=== PATIENT | male | born 1995 | race Caucasian/White ===

== ENCOUNTER 2019-11-03 12:47 | Emergency (ER) | payer OTHER ==
--- NOTE | 2019-11-03 13:31 | ERPHSYRPT ---
- History of Present Illness Time Seen by Provider: 11/03/19 12:57 Historian: patient, family Exam Limitations: no limitations, other (mild autism) Patient Subjective Stated Complaint: pt reports for approx 6 months he experiences episodes of vomiting after he eats. pt states he is under the care of a doctor for this issue and had recent outpatient labs, xray studies and is scheduled this week for a scope. mother in room reports that so far all his tests have so far been reported as negative. this morning pt states he woke with abdominal pain and began vomiting. pt reports blood in his vomit. pt denies any pain at time of triage. Triage Nursing Assessment: pt is aox3, pupils perrl, afebrile, resps easy and non labored, radial pulses strong and equal, cap refill < 3 seconds, pt abd soft non tender, bowel sounds present normoactive x 4. pt skin pale warm dry. Physician History: Recurring nausea and vomiting, has EGD in 2 days. Had a hard vomit today and a small amount of blood came up, only once, has a little burning sensation in his abdomen. He was on prilosec but stopped it because it was not helping. Timing/Duration: today Activities at Onset: other (recurrent pain in upper abdomen) Quality: burning Abdominal Pain Onset Location: epigastric Pain Radiation: no radiation Severity of Pain-Max: mild Severity of Pain-Current: none Modifying Factors: Improves With: eating Associated Symptoms: denies symptoms, heartburn, No fever/chills Previous symptoms: different symptoms (this is first time vomited up a little bit of blood) Allergies/Adverse Reactions: No Known Drug Allergies Allergy (Verified 11/03/19 13:07) Home Medications: Calcium Carbonate [Tums] 1 tab PO UD 10/28/19 [History] Iron,Carb/Vit C/Vit B12/Folic [Iron 100 Plus Tablet] 2 tab PO DAILY 10/28/19 [ History] Mag Hydrox/Aluminum Hyd/Simeth [Antacid Liquid] 1 dose PO UD 10/28/19 [History] Melatonin 1 tab PO UD 10/28/19 [History] Hx Tetanus, Diphtheria Vaccination/Date Given: (unk) Hx Influenza Vaccination/Date Given: No Hx Pneumococcal Vaccination/Date Given: No Immunizations Up to Date: Yes - Review of Systems Constitutional: No Symptoms Eyes: No Symptoms Ears, Nose, & Throat: No Symptoms Respiratory: No Symptoms Cardiac: No Symptoms Abdominal/Gastrointestinal: Abdominal Pain, Hematemesis Genitourinary Symptoms: No Symptoms Musculoskeletal: No Symptoms Skin: No Symptoms Neurological: No Symptoms Psychological: No Symptoms Endocrine: No Symptoms Hematologic/Lymphatic: No Symptoms Immunological/Allergic: No Symptoms All Other Systems: Reviewed and Negative - Past Medical History Pertinent Past Medical History: Yes Neurological History: No Pertinent History ENT History: No Pertinent History Cardiac History: No Pertinent History Respiratory History: No Pertinent History Endocrine Medical History: Hypoglycemia Musculoskeletal History: No Pertinent History GI Medical History: GERD History: No Pertinent History Psycho-Social History: Anxiety, Depression, Other Male Reproductive Disorders: No Pertinent History Other Medical History: slight autism, night terrors - Past Surgical History Past Surgical History: Yes Neuro Surgical History: No Pertinent History Cardiac: No Pertinent History Respiratory: No Pertinent History Gastrointestinal: No Pertinent History Genitourinary: No Pertinent History Musculoskeletal: No Pertinent History Male Surgical History: No Pertinent History Other Surgical History: multiple sets of tubes in ears - Social History Smoking Status: Never smoker Exposure to second hand smoke: No Drug Use: none Patient Lives Alone: Yes - Nursing Vital Signs Nursing Vital Signs: Initial Vital Signs Temperature 98.9 F 11/03/19 12:52 Pulse Rate 81 11/03/19 12:52 Respiratory Rate 20 11/03/19 12:52 Blood Pressure 141/96 11/03/19 12:52 O2 Sat by Pulse Oximetry 100 11/03/19 12:52 Pain Scale Pain Intensity 0 - Physical Exam General Appearance: no apparent distress, obese Eye Exam: PERRL/EOMI, eyes nml inspection Ears, Nose, Throat Exam: normal ENT inspection Neck Exam: normal inspection Respiratory Exam: normal breath sounds Cardiovascular Exam: regular rate/rhythm, normal heart sounds Gastrointestinal/Abdomen Exam: soft, normal bowel sounds Rectal Exam: deferred Back Exam: other (N/E) Extremity Exam: normal inspection Neurologic Exam: alert, oriented x 3, cooperative, normal mood/affect Skin Exam: normal color, warm SpO2 Interpretation: normal SpO2: 100 O2 Delivery: Room Air - Course Nursing assessment & vital signs reviewed: Yes - Progress Progress: improved Progress Note: He had a hard vomit and likely generated a small tear at the GE junction area, only once. Needs med for acid and nausea. I called Dr. Barry (PCP), she says OK to Rx protonix and zofran ODT. 11/03/19 16:57 Discussed with : April Will see patient in: office Counseled pt/family regarding: diagnosis, need for follow-up - Departure Departure Disposition: Home Clinical Impression: Gastritis Qualifiers: Gastritis type: unspecified gastritis Chronicity: acute Gastritis bleeding: presence of bleeding unspecified Qualified Code(s): K29.00 - Acute gastritis without bleeding Condition: Stable Critical Care Time: No Referrals: GERRY BARRY MD [Primary Care Provider] - Instructions: Vomiting -- Adult Additional Instructions: Dr. Barry suggested to try some new medications for your stomach. Mylanta or similar medicine is OK if helpful. Upper scope Monday as planned. Prescriptions: Ondansetron ODT 4 MG [Zofran Odt 4 mg] 4 mg PO Q6H PRN PRN #20 tab.rapdis PRN Reason: Nausea/Vomiting PANTOPRAZOLE 40 mg Tablet [Protonix 40MG Tablet] 40 mg PO QAM #30 tab
[2019-11-03 13:48] VITALS: BP 138/92; PULSE 63
[2019-11-03 16:57] VITALS: O2SAT 100
== END 2019-11-03 13:49 | disposition home or self-care (01) ==
LOC: ED 12:47
DX: K29.00 Acute gastritis without bleeding (principal); R11.2 Nausea with vomiting, unspecified; R10.9 Unspecified abdominal pain; R10.13 Epigastric pain; Z79.899 Other long term (current) drug therapy
CPT/HCPCS: 99283

== ENCOUNTER 2019-11-05 05:54 | Day surgery (SDC) | payer OTHER ==
[2019-11-05] MEDS ORDERED: Lactated Ringers 1,000 ML IV SCH (06:30)
[2019-11-05 06:37] VITALS: O2SAT 100
[2019-11-05] MEDS ORDERED: Mylicon DROPS ONE (07:02)
[2019-11-05] MEDS ORDERED: Versed 2 MG/2 ML Injection ONE (07:29)
[2019-11-05] MEDS ORDERED: DIPRIVAN 200 MG/20 ML IV ONE ×2 (07:29→07:42)
[2019-11-05 08:38] VITALS: BP 109/66; PULSE 56
--- NOTE | 2019-11-05 08:44 | OP ---
SURGERY DATE/TIME: 11/05/2019 0733 PREOPERATIVE DIAGNOSIS: Gastroesophageal reflux. POSTOPERATIVE DIAGNOSIS: Moderate gastritis. PROCEDURE: Esophagogastroduodenoscopy with cold forceps biopsy. SURGEON: Dr. Nina. ANESTHESIA: Medications were given by the anesthesia department. BRIEF HISTORY: The patient is a 24 year old white male who presents now with complaints of reflux and epigastric pain. He reports he had been taking antacids without relief and he has been losing weight. He reports that he had recently been placed on another medication just two days ago which has not had time to know whether it is going to help. The patient was described the risks of the procedure including the risk of perforation, phlebitis, untoward reaction to medication, bleeding and missed lesions. The patient verbalized his understanding and desired to have the procedure performed. DESCRIPTION OF PROCEDURE: The patient was given the medications by the anesthesia department. He had continuous pulse oximetry, ECG monitoring, intermittent blood pressure monitoring and tidal CO2 monitoring during the examination. He was placed in the left lateral decubitus position. A bite block was placed and the flexible Olympus gastroscope was used to intubate the oropharynx. A view of the larynx was obtained and was normal. The scope was easily passed in the esophagus which appeared to be normal throughout its length. The stomach was entered where normal gastric rugal folds were seen and these distended nicely with insufflation of air. The scope was passed along the greater curvature of the stomach to the antrum which appeared to have streaks of erythema but no erosions or ulcerations were noted. The pylorus was encountered and intubated. The duodenum inspected and found to be normal. The scope is withdrawn towards the stomach. Again, a retroflex view was obtained of the lesser curvature, fundus and cardia regions of the stomach and these appeared to be normal. The scope was then redirected towards the gastric antrum and biopsies were obtained to rule out the presence of Helicobacter pylori-type organisms. The scope was then removed from the patient who tolerated the procedure well and was sent back to outpatient recovery in good condition.
== END 2019-11-05 08:49 | disposition home or self-care (01) ==
LOC: SDC 05:54
PROVIDERS: ATTEND Family Medicine
DX: K29.70 Gastritis, unspecified, without bleeding (principal); K21.9 Gastro-esophageal reflux disease without esophagitis
CPT/HCPCS: 88305; J2250; J2704; A9270-GY

== ENCOUNTER 2020-10-23 20:27 | Emergency (ER) | payer OTHER ==
[2020-10-23 20:44] VITALS: O2SAT 100
[2020-10-23] MEDS ORDERED: MOTRIN 600 MG PO ONE (21:02)
--- NOTE | 2020-10-23 21:08 | ERPHSYRPT ---
- History of Present Illness Time Seen by Provider: 10/23/20 20:29 Source: patient Exam Limitations: no limitations Patient Subjective Stated Complaint: "I tripped on spilled sugar at work and hurt my knee." Triage Nursing Assessment: Patient reported tripping on spilled sugar at work. Reported hitting both hands and the left knee. Patient reported left knee pain is his main concern. Pain described as squeezing a nerve and radiating to the left foot. Denied any numbness or tingling. Gait steady with a limp. Deneid any loss of consciousness. Physician History: 25 years old male presented in the ER with chief complaint of left knee pain after he tripped at work with landing on the ground, was able to catch himself with both hands and hit his left knee. On the way down he heard a popping sound in the left knee. He is able to walk but has pain moderate intensity sharp nature with ambulation and better with resting. No swelling of the knee. No hand pain. Method of Injury: fell Occurred: this evening Quality: sharpness Severity of Pain-Max: moderate Severity of Pain-Current: mild Lower Extremities Pain: knee: left Modifying Factors: Improves With: immobilization, rest. Worsens With: movement Associated Symptoms: popping sensation Allergies/Adverse Reactions: No Known Drug Allergies Allergy (Verified 11/05/19 06:15) Hx Tetanus, Diphtheria Vaccination/Date Given: (unk) Hx Influenza Vaccination/Date Given: No Hx Pneumococcal Vaccination/Date Given: No Travel Risk - International Travel Have you traveled outside of the country in past 3 weeks: No - Coronavirus Screening Are you exhibiting any of the following symptoms?: No Close contact with a COVID-19 positive Pt in past 14-21 Days: No - Review of Systems Constitutional: No Symptoms Eyes: No Symptoms Ears, Nose, & Throat: No Symptoms Respiratory: No Symptoms Cardiac: No Symptoms Abdominal/Gastrointestinal: No Symptoms Musculoskeletal: Injury, Joint Pain Skin: No Symptoms Neurological: No Symptoms Psychological: No Symptoms Endocrine: No Symptoms Hematologic/Lymphatic: No Symptoms - Past Medical History Pertinent Past Medical History: Yes Neurological History: No Pertinent History ENT History: No Pertinent History Cardiac History: No Pertinent History Respiratory History: No Pertinent History Endocrine Medical History: Hypoglycemia Musculoskeletal History: No Pertinent History GI Medical History: GERD History: No Pertinent History Psycho-Social History: Anxiety, Depression, Other Male Reproductive Disorders: No Pertinent History Other Medical History: slight autism, night terrors - Past Surgical History Past Surgical History: Yes Neuro Surgical History: No Pertinent History Cardiac: No Pertinent History Respiratory: No Pertinent History Gastrointestinal: Cholecystectomy Genitourinary: No Pertinent History Musculoskeletal: No Pertinent History Male Surgical History: No Pertinent History Other Surgical History: multiple sets of tubes in ears - Social History Smoking Status: Never smoker Exposure to second hand smoke: No Drug Use: none Patient Lives Alone: No - Nursing Vital Signs Nursing Vital Signs: Initial Vital Signs Temperature 98.2 F 10/23/20 20:28 Pulse Rate 74 10/23/20 20:28 Respiratory Rate 16 10/23/20 20:28 Blood Pressure 161/105 10/23/20 20:28 O2 Sat by Pulse Oximetry 100 10/23/20 20:28 Pain Scale Pain Intensity 7 - Physical Exam General Appearance: no apparent distress, alert Eyes, Ears, Nose, Throat Exam: normal ENT inspection Neck Exam: normal inspection, supple, full range of motion Cardiovascular/Respiratory Exam: normal breath sounds, regular rate/rhythm Back Exam: normal inspection, normal range of motion Hips Exam: bilateral: non-tender, normal inspection, normal range of motion Legs Exam: bilateral leg: non-tender, normal inspection, normal range of motion Knees Exam: left knee: pain, soft tissue tenderness, bilateral knee: non-tender, normal inspection, normal range of motion, no evidence of injury Ankle Exam: bilateral ankle: non-tender, normal inspection, normal range of motion, no evidence of injury Neuro/Tendon Exam: normal sensation, normal motor functions, normal tendon functions Mental Status Exam: alert, oriented x 3 Skin Exam: normal color SpO2 Interpretation: normal SpO2: 100 O2 Delivery: Room Air Ordered Tests: Active Orders 24 hr Category Date Time Status KNEE (3 VIEWS) Stat Exams 10/23/20 20:45 Taken Medication Summary Discontinued Medications Generic Name Dose Route Start Last Admin Trade Name Freq PRN Reason Stop Dose Admin Ibuprofen 600 mg 10/23/20 21:02 10/23/20 21:10 Motrin 600 Mg PO 10/23/20 21:03 600 mg STAT ONE Administration Ibuprofen Confirm 10/23/20 21:09 Motrin 600 Mg Administered 10/23/20 21:10 Dose 600 mg .ROUTE .STK-MED ONE - Progress Progress: improved Progress Note: He is given ibuprofen for symptomatic relief. Patient is still able to ambulate. X-rays negative for any fracture dislocation reviewed by me, patient with reports pending. Placed in a knee oz wrap. I believe patient has ligamentous injury, recommended outpatient Ortho clinic follow-up for further evaluation. Will place on NSAIDs to go home. 10/23/20 21:22 Counseled pt/family regarding: diagnosis, need for follow-up, rad results - Departure Departure Disposition: Home Clinical Impression: Sprain of left knee Qualifiers: Encounter type: initial encounter Involved ligament of knee: unspecified ligament Qualified Code(s): S83.92XA - Sprain of unspecified site of left knee, initial encounter Condition: Stable Critical Care Time: No Referrals: GERRY EPPERSON MD [Primary Care Provider] - Follow Up with PCP/3 days SELENE DUMONT NP [NON-STAFF PHY W/O PRIVILEGES] - (Monday morning for reevaluation) Instructions: Knee Sprain (DC), Knee Pain (DC) Additional Instructions: Take Tylenol/ibuprofen as needed for pain. Follow-up with primary care and Ortho clinic for reevaluation. Weightbearing only as tolerated. Avoid exertional activities. Apply ice. Prescriptions: Ibuprofen 600 mg PO Q6HPRN PRN 10 Days #20 tablet PRN Reason: Pain
[2020-10-23] MEDS ORDERED: MOTRIN 600 MG ONE (21:09)
[2020-10-23 21:42] VITALS: BP 135/87; PULSE 64
--- NOTE | 2020-10-23 22:06 | XRAY ---
Indication: "Pop" with injury. Comparison: None 3 view left knee obtained. No bony, articular, or soft tissue abnormalities.
== END 2020-10-23 21:51 | disposition home or self-care (01) ==
LOC: ED 20:27
DX: S83.8X2A Sprain of other specified parts of left knee, initial encounter (principal); M25.562 Pain in left knee
CPT/HCPCS: 73562; 99284; A9270-GY